=== PATIENT | male | born 2000 ===

== ENCOUNTER 2020-06-01 23:55 | Emergency (ER) | payer SELFPAY ==
[2020-06-02 02:06] VITALS: BP 129/53
--- NOTE | 2020-06-02 03:03 | XRay Report ---
Left ankle-3 views INDICATION: Ankle injured by bucket on [employer]. COMPARISON: None. IMPRESSION: Mild swelling about the ankle with no acute fracture or malalignment. No significant DJD . Signer Name: Gabino John MD Signed: 06/02/2020 2:58 AM Workstation Name: [email or web address] [id number]
== END 2020-06-02 04:08 | disposition left against medical advice (07) ==
LOC: ED 23:55
DX: M79.605 Pain in left leg (principal); Z53.21 Procedure and treatment not carried out due to patient leaving prior to being seen by health care provider